=== PATIENT | female | born 1995 | race Asian ===

== ENCOUNTER → 2024-03-17 | Outpatient (CLI) | payer MEDICAID, SELFPAY ==
--- NOTE | 2024-03-17 16:00 | XR_ITS ---
Examination: CT abdomen and pelvis without contrast. Coronal 3-D reconstructions. Sagittal 2-D reconstructions. Date and time of exam:March 17, 2024 1645 hours INDICATIONS: Kidney tumor diagnosis on abdomen sonogram February 2024 CTDI: vol (mGy): 6.35 DLP: (mGycm): 299 Technique: Axial images of the abdomen have been obtained, 3 mm slice thickness Intravenous contrast material has not been administered. Low dose protocols were performed. One or more of the following dose reduction techniques were used; automated exposure control, adjustment of the mA and/or KV according to patient size, use of iterative reconstruction technique. Findings: No focal liver or splenic lesion No gallstones No pancreatic or adrenal mass 5 mm low-density lesion lateral margin right kidney 4 mm isodense lesion upper lateral margin left kidney No calculi or hydronephrosis Normal appendix No bowel obstruction Urinary bladder intact Anteverted uterus no pelvic mass Osseous structures intact IMPRESSION: 5 mm low-density lesion lateral margin right kidney 4 mm isodense lesion upper lateral margin left kidney Recommend MRI abdomen kidneys follow-up pre and postcontrast for diagnostic assessment of the small renal masses
[2024-03-17 16:34] LABS: HCG Qualitative,Urine Negative
== END | disposition home or self-care (01) ==
LOC: CCTX 15:46 → COPL 15:47
PROVIDERS: PCP Physician Assistant Medical; Referring Provider Physician Assistant Medical; Visit Provider Radiology Diagnostic Radiology
DX: Z32.00 Encounter for pregnancy test, result unknown (principal); N28.89 Other specified disorders of kidney and ureter
CPT/HCPCS: 74176; 81025

== ENCOUNTER → 2024-04-29 | Outpatient (CLI) | payer MEDICAID, SELFPAY ==
[2024-04-27 10:20] LABS: HCG Qualitative,Urine Negative
--- NOTE | 2024-04-29 15:30 | XR_ITS ---
Examination: MRI abdomen with intravenous contrast. MRI abdomen without intravenous contrast. Date and time of exam: April 29, 2024 at 1557 hours INDICATIONS: Onset heartburn abdominal pain beginning January 2024, CT abdomen March 17, 2024 5 mm lateral mass right kidney 4 mm upper lateral mass left kidney Technique: Multiple axial, sagittal and coronal sections of the abdomen obtained. Transverse images, TR 6020, TE 107. T1 weighted transverse images, TR 582, TE 9.5. T2-weighted sagittal images, TR 4000, TE 105. T2-weighted sagittal images, TR 4000, TE 5. Coronal images, TR 4210, TE 107. Axial and coronal images are obtained post 19 cc intravenous injection, gadolinium. Findings: Liver sagittal dimension 14 cm No intrahepatic biliary tract dilatation No gallstones No extrahepatic biliary tract dilatation No pancreatic mass Spleen is not enlarged 4 mm nonenhancing cyst lateral margin right kidney No left renal mass lesion is depicted Aorta normal size No ascites No adenopathy IMPRESSION: 4 mm cyst lateral margin right kidney No left renal mass lesion noted I would still recommend bilateral renal sonography follow-up in 6 months
--- NOTE | 2024-04-29 16:30 | XR_ITS ---
Examination: MRI pelvis with intravenous contrast. MRI of pelvis without intravenous contrast. Date and time of exam: April 29, 2024 1537 hours INDICATIONS: Heartburn sensation, CT abdomen pelvis bilateral renal masses October 16, 2023 Technique: Multiple axial, sagittal and coronal sections of the pelvis obtained. Transverse images, TR 6020, TE 107. T1 weighted transverse images, TR 582, TE 9.5. T2-weighted sagittal images, TR 4000, TE 105. T2-weighted sagittal images, TR 4000, TE 5. Coronal images, TR 4210, TE 107. Axial and coronal images are obtained post 19 gadolinium. FINDINGS: Anteverted uterus 8.2 x 4.2 x 3.8 cm Endometrial stripe normal 3 mm Right ovary 3.2 x 2.8 cm follicular cysts, the largest 6 mm Left ovary 4.2 x 3.8 cm, simple left ovarian cyst 2.6 cm No free fluid in the pelvis cc intravenous injection, gadolinium. Impression: No uterine mass Normal endometrial stripe Small right ovarian follicular cysts Left ovary 2.6 cm simple cyst
== END | disposition home or self-care (01) ==
PROVIDERS: PCP Physician Assistant Medical; Referring Provider Physician Assistant Medical; Visit Provider Physician Assistant Medical
DX: N28.1 Cyst of kidney, acquired (principal); N83.01 Follicular cyst of right ovary; Z32.00 Encounter for pregnancy test, result unknown
CPT/HCPCS: 72197; 74183; 81025; A9579